=== PATIENT | female | born 1970 | race Caucasian/White ===

== ENCOUNTER → 2020-07-08 | Outpatient (CLI) | payer SELFPAY | LOC: MC.RAD 13:48 | DX: N64.9 Disorder of breast, unspecified (principal) ==

== ENCOUNTER → 2021-01-12 | Outpatient (CLI) | payer SELFPAY | LOC: MC.RAD 13:59 | DX: N63.20 Unspecified lump in the left breast, unspecified quadrant (principal) ==

== ENCOUNTER → 2022-05-19 | Outpatient (CLI) | payer SELFPAY | LOC: MC.RAD 13:00 | DX: Z12.31 Encounter for screening mammogram for malignant neoplasm of breast (principal) ==